=== PATIENT | male | born 1975 | race Caucasian/White ===

== ENCOUNTER 2016-11-08 15:47 | Emergency (ER) | payer OTHER ==
[~2016-11-08] VITALS: Ht 165.1 cm; Wt 79.0 kg
[~2016-11-08 15:47] MED LIST: HYDR-3498 PO; IBUP-1542 PO
[2016-11-08 15:49] VITALS: Ht 165.1 cm; Wt 79.0 kg
--- NOTE | 2016-11-08 16:43 | ERD ---
ER Documentation Chief Complaint Date/Time DATE: 11/08/16 TIME: 16:41 Chief Complaint Abdominal pain x1 month with nausea. One episode of vomiting yesterday. HPI Patient is a 40-year-old male who presents with 1 month of gradual onset, constant, bilateral upper quadrant abdominal pain. He states that he is seen a chair springer and was told that he has hepato-splenomegaly as well as gastric ulcer. Patient reports one episode of vomiting 4 days ago. He reports nausea. He denies fever. He denies hematuria or dysuria. He denies dark stools, constipation or diarrhea. He states he is taking tramadol, but it is not working. He states that the pain is been more severe today. He states that he had an ultrasound performed that showed no evidence of gallstones. He was told that he had prostate cancer, but subsequently had workup and was told that he did not have prostate cancer. ROS All systems reviewed and are negative except as per history of present illness. Medications Home Meds Active Scripts Famotidine* (Pepcid*) 20 Mg Tablet, 20 MG PO BID for 28 Days, TAB Prov:KIM BRAY MD 11/08/16 Ibuprofen* (Motrin*) 600 Mg Tab, 600 MG PO Q6, #30 TAB Prov:LUCA VALENCIA 09/07/15 Hydrocodone Bit-Acetaminophen* ([place]*) 5-325 Mg Tab, 1 TAB PO Q6 Y for PAIN, # 20 TAB Prov:LUCA VALENCIA 09/07/15 Reported Medications [None] No Conflict Check 09/22/09 Allergies Allergies: Coded Allergies: No Known Allergies (Verified Allergy, Mild, 05/10/12) PMhx/Soc Past medical history: Hepatosplenomegaly Past surgical history: Appendectomy Social history: Denies tobacco, alcohol or illicit drugs. History of Surgery: Yes (APPENDECTOMY) Anesthesia Reaction: No Hx Neurological Disorder: No Hx Respiratory Disorders: No Hx Cardiac Disorders: No Hx Psychiatric Problems: No Hx Miscellaneous Medical Probl: No Hx Alcohol Use: No Hx Substance Use: No Hx Tobacco Use: No FmHx Family History: No coronary disease, No diabetes Physical Exam Vitals Vital Signs Date Time Temp Pulse Resp B/P Pulse Ox O2 Delivery O2 Flow Rate FiO2 11/08/16 15:49 98.1 84 18 121/77 98 Physical Exam Const: Alert, no acute distress Head: Atraumatic Eyes: Normal Conjunctiva, no pallor, no icterus ENT: Normal External Ears, Nose and Mouth. Mucous membranes moist Neck: Full range of motion..~ No meningismus. Resp: Clear to auscultation bilaterally, no wheezes, no rales Cardio: Regular rate and rhythm, no murmurs Abd: Soft, non distended. Mild left upper and lower abdominal tenderness without guarding or rebound. Serial exams show variable tenderness Skin: No petechiae or rashes Back: No midline or flank tenderness Ext: No cyanosis, or edema Neur: Awake and alert, cranial nerves II through XII intact bilaterally, strength and sensation full in 4 extremities Psych: Normal Mood and Affect Result Diagram: 11/08/160 11/08/16 165 Results 24 hrs Laboratory Tests Test 11/08/16 16:43 11/08/16 16:50 Urine Color YELLOW Urine Clarity CLEAR Urine pH 5.0 Urine Specific [place] 1.029 Urine Ketones NEGATIVEmg/dL Urine Nitrite NEGATIVEmg/dL Urine Bilirubin NEGATIVEmg/dL Urine Urobilinogen NEGATIVEmg/dL Urine Leukocyte Esterase NEGATIVELeu/ul Urine Hemoglobin NEGATIVEmg/dL Urine Glucose NEGATIVEmg/dL Urine Total Protein NEGATIVEmg/dl White Blood Count 6.210^3/ul Red Blood Count 4.8510^6/ul Hemoglobin 14.1g/dl Hematocrit 40.8% Mean Corpuscular Volume 84.1fl Mean Corpuscular Hemoglobin 29.1pg Mean Corpuscular Hemoglobin Concent 34.6g/dl Red Cell Distribution Width 13.3% Platelet Count 57751^3/UL Mean Platelet Volume 11.6fl Neutrophils % 59.4% Lymphocytes % 23.1% Monocytes % 5.0% Eosinophils % 11.6% Basophils % 0.6% Nucleated Red Blood Cells % 0.0/100WBC Neutrophils # 3.710^3/ul Lymphocytes # 1.410^3/ul Monocytes # 0.310^3/ul Eosinophils # 0.710^3/ul Basophils # 0.010^3/ul Nucleated Red Blood Cells # 0.010^3/ul Sodium Level 147mmol/L Potassium Level 4.0mmol/L Chloride Level 105mmol/L Carbon Dioxide Level 26mmol/L Anion Gap 20 Blood Urea Nitrogen 15mg/dl Creatinine 0.91mg/dl Glucose Level 103mg/dl Calcium Level 9.5mg/dl Total Bilirubin 1.2mg/dl Direct Bilirubin 0.00mg/dl Indirect Bilirubin 1.2mg/dl Aspartate Amino Transf (AST/SGOT) 30IU/L Alanine Aminotransferase (ALT/SGPT) 51IU/L Alkaline Phosphatase 97IU/L Total Protein 8.5g/dl Albumin 4.8g/dl Globulin 3.70g/dl Albumin/Globulin Ratio 1.29 Lipase 196U/L Procedures/MDM MDM: Patient is a 40-year-old male who presents with 1 month of upper abdominal pain that is worse for 1 day. He has a benign abdominal exam. He has not had recent fever or vomiting. He has no leukocytosis or LFT abnormality. He has been diagnosed with peptic ulcer disease and hepatosplenomegaly. He is already on tramadol. I will prescribe him Pepcid, and have advised him to follow-up closely with his chair springer. I have advised him to return to the ER for worsening pain, fever, or vomiting. There is no signs or symptoms to suggest perforating ulcer. There are no features that are concerning for mesenteric ischemia or coronary ischemia. Departure Diagnosis: Primary Impression: Abdominal pain Abdominal location: upper abdomen, unspecified Qualified Code: R10.10 - Pain of upper abdomen Condition: Stable KIM BRAY MD Nov 08, 2016 16:43 KIM BRAY MD Nov 08, 2016 16:43
[2016-11-08 17:01] LABS: ADD UMIC NO; UR ASCORBIC ACID 40 mg/dL (NEGATIVE); UR BILIRUBIN (Dip) NEGATIVE (NEGATIVE); UR BLOOD (Dip) NEGATIVE (NEGATIVE); UR CLARITY CLEAR (CLEAR); UR COLOR YELLOW (YELLOW); UR GLUCOSE (Dip) NEGATIVE (NEGATIVE); UR KETONES (Dip) NEGATIVE (NEGATIVE); UR LEUKOCYTE ESTERASE (Dip) NEGATIVE Leu/ul (NEGATIVE); UR NITRITE (Dip) NEGATIVE (NEGATIVE); UR SPECIFIC GRAVITY (Dip) 1.029 (1.003-1.030); UR TOTAL PROTEIN (Dip) NEGATIVE (NEGATIVE); UR UROBILINOGEN (Dip) NEGATIVE (NEGATIVE)
[2016-11-08 17:05] LABS: BASOPHILS % 0.6 % (0.0-2.0); EOSINOPHILS # 0.7 10^3/ul (0.0-0.5); EOSINOPHILS % 11.6 % (0.0-7.0); HEMATOCRIT 40.8 % (42.0-52.0); HEMOGLOBIN 14.1 g/dl (14.0-18.0); LYMPHOCYTES # 1.4 10^3/ul (0.8-2.9); LYMPHOCYTES % 23.1 % (15.0-51.0); MEAN CORPUSCULAR HEMOGLOBIN 29.1 pg (29.0-33.0); MEAN CORPUSCULAR HGB CONC 34.6 g/dl (32.0-37.0); MEAN CORPUSCULAR VOLUME 84.1 fl (82.0-101.0); MEAN PLATELET VOLUME 11.6 fl (7.4-10.4); MONOCYTE # 0.3 10^3/ul (0.3-0.9); NEUTROPHIL # 3.7 10^3/ul (1.6-7.5); NEUTROPHILS % 59.4 % (39.0-77.0); PLATELET COUNT 177 10^3/UL (140-415); RED BLOOD COUNT 4.85 10^6/ul (4.70-6.10); RED CELL DISTRIBUTION WIDTH 13.3 % (11.5-14.5); WHITE BLOOD COUNT 6.2 10^3/ul (4.8-10.8)
[2016-11-08 17:24] LABS: ALBUMIN 4.8 g/dl (3.3-4.9); ALBUMIN/GLOBULIN RATIO 1.29; BILIRUBIN,INDIRECT 1.2 mg/dl (0-1.1); BILIRUBIN,TOTAL 1.2 mg/dl (0.2-1.3); CALCIUM 9.5 mg/dl (8.4-10.2); CREATININE 0.91 mg/dl (0.61-1.24); TOTAL PROTEIN 8.5 g/dl (6.1-8.1)
[2016-11-08] MEDS ORDERED: FAMO-96 PO (18:18)
[2016-11-08 19:10] VITALS: BP 108/69; PULSE 73; RESP 18; TEMP 98
== END 2016-11-08 19:10 | disposition home or self-care (01) ==
LOC: FTE 15:47
DX: R10.11 Right upper quadrant pain (principal); R10.12 Left upper quadrant pain
CPT/HCPCS: 80053; 81003; 83690; 85025; Z7502; 99283

== ENCOUNTER 2017-10-05 15:45 | Emergency (ER) | END 2017-10-05 20:41 | disposition home or self-care (01) ==

== ENCOUNTER 2017-10-07 12:25 | Emergency (ER) | END 2017-10-07 18:41 | disposition home or self-care (01) ==